=== PATIENT | female | born 1990 | race Hispanic/Latino ===

== ENCOUNTER 2017-12-30 21:21 | Emergency (ER) | payer BC | END 2017-12-30 21:28 | disposition left against medical advice (07) | LOC: EDH 21:21 | DX: Z53.21 Procedure and treatment not carried out due to patient leaving prior to being seen by health care provider (principal) ==

== ENCOUNTER 2018-03-26 21:37 | Emergency (ER) | payer BC, MEDICAID | END 2018-03-26 23:15 | disposition home or self-care (01) | LOC: EDH 21:37 | DX: O99.512 Diseases of the respiratory system complicating pregnancy, second trimester (principal); J40 Bronchitis, not specified as acute or chronic; J11.1 Influenza due to unidentified influenza virus with other respiratory manifestations; Z98.890 Other specified postprocedural states; Z3A.23 23 weeks gestation of pregnancy | CPT/HCPCS: 87804 ==